=== PATIENT | male | born 1960 ===

== ENCOUNTER 2018-01-21 07:30 | Day surgery (SDC) | payer MEDICARE ==
[2018-01-19 11:25] VITALS: BMI 25.0
[~2018-01-21 07:30] MED LIST: LACTATED RINGERS 1,000 ML IV SCH; LIDOCAINE 1% 20 ML VIAL (10MG/ML) FOR IV START INTRADERMA PRN
[2018-01-21] MEDS ORDERED: LACTATED RINGERS 1,000 ML IV ONE (07:45)
[2018-01-21 07:47] VITALS: RESP 18; TEMP 98
[2018-01-21] MEDS ORDERED: LIDOCAINE 1% 20 ML VIAL (10MG/ML) FOR IV START INTRADERMA ONE (07:54)
[2018-01-21] MEDS ORDERED: PROPOFOL 10 MG/ML 20 ML VIAL IV ONE (08:27)
--- NOTE | 2018-01-21 08:34 | P.GSHP ---
History of Present Illness H&P Date: 01/21/18 Chief Complaint: Screening, history of polyps Patient here today for colonoscopy. Last colonoscopy was found have a moderate sized polyp. No bowel complaints. Past Medical History Past Medical History: Hypertension, Prostate Disorder Additional Past Medical History / Comment(s): hx colon polyps History of Any Multi-Drug Resistant Organisms: None Reported Additional Past Surgical History / Comment(s): colonscopy, growth to remove a growth on knee Past Anesthesia/Blood Transfusion Reactions: No Reported Reaction Smoking Status: Former smoker - Past Family History Mother Family Medical History: GI Bleed Sister(s) Family Medical History: Cancer Additional Family Medical History / Comment(s): multiple myeloma x 2 sisters Medications and Allergies Home Medications Medication Instructions Recorded Confirmed Type Ascorbic Acid [Vitamin C] 500 mg PO DAILY 01/19/18 01/19/18 History Aspirin [Adult Low Dose Aspirin EC] 81 mg PO DAILY 01/19/18 01/19/18 History L.acidoph,Paracasei, B.lactis 1 each PO DAILY 01/19/18 01/19/18 History [Probiotic] Lisinopril-Hctz 20-25 mg 1 tab PO DAILY 01/19/18 01/19/18 History [Zestoretic 20-25] Loratadine-Pseudoeph 10-240 mg 1 each PO DAILY 01/19/18 01/19/18 History [Claritin-D 24 Hr] Lysine [l-Lysine] 500 mg PO DAILY 01/19/18 01/19/18 History Tamsulosin [Flomax] 0.4 mg PO DAILY 01/19/18 01/19/18 History Allergies Allergy/AdvReac Type Severity Reaction Status Date / Time No Known Allergies Allergy Verified 01/19/18 11:13 Surgical - Exam Vital Signs Temp Pulse Resp BP Pulse Ox 98.0 F 78 18 157/88 98 01/21/18 07:46 01/21/18 07:46 01/21/18 07:46 01/21/18 07:46 01/21/18 07:46 Physical exam: General: Well-developed, well-nourished HEENT: Normocephalic, sclerae nonicteric Abdomen: Nontender, nondistended Extremities: No edema Neuro: Alert and oriented Assessment and Plan (1) Colon cancer screening Narrative/Plan: Will proceed with colonoscopy at this time Current Visit: Yes Status: Acute Code(s): Z12.11 - ENCOUNTER FOR SCREENING FOR MALIGNANT NEOPLASM OF COLON SNOMED Code(s): 149589683
--- NOTE | 2018-01-21 08:53 | P.PCN ---
Date of Procedure: 01/21/18 Procedure(s) Performed: PREOPERATIVE DIAGNOSIS: Colon cancer screening, history of polyps POSTOPERATIVE DIAGNOSIS: Ascending colon polyp PROCEDURE: Colonoscopy with snare polypectomy ANESTHESIA: MAC SURGEON: Don Mann M.D. SPECIMENS: Ascending colon polyp ENDOSCOPIC PROCEDURE: The patient was placed on the endoscopy table in the left decubitus position. The Olympus colonoscope was inserted into the anus and passed under direct visualization to the base of the cecum. The appendiceal orifice was visualized. From that point the scope was slowly withdrawn inspecting all surfaces carefully. There were no neoplastic inflammatory or polypoid lesions throughout the cecum. In the mid ascending colon a small polyp was identified and removed using the snare with cautery technique. The remainder of the ascending transverse descending sigmoid and rectum appeared normal. There was visible diverticulosis. Digital rectal examination was normal. The patient was taken to the recovery room in stable condition per anesthesia guidelines. RECOMMENDATIONS: Await biopsy results. Recommend follow-up colonoscopy 5 years.
[2018-01-21 09:15] VITALS: BP 106/75; PULSE 67
== END 2018-01-21 09:42 | disposition home or self-care (01) ==
LOC: ORWHC2ENDO 07:30
PROVIDERS: ATTEND Surgery
DX: Z12.11 Encounter for screening for malignant neoplasm of colon (principal); D12.2 Benign neoplasm of ascending colon; K57.30 Diverticulosis of large intestine without perforation or abscess without bleeding; Z87.19 Personal history of other diseases of the digestive system; I10 Essential (primary) hypertension; N42.9 Disorder of prostate, unspecified; N40.0 Benign prostatic hyperplasia without lower urinary tract symptoms; F79 Unspecified intellectual disabilities; Z79.82 Long term (current) use of aspirin; Z79.899 Other long term (current) drug therapy; Z87.891 Personal history of nicotine dependence
CPT/HCPCS: 88305; 45385; J2704

== ENCOUNTER → 2019-06-11 | Outpatient (CLI) | payer MEDICARE ==
--- NOTE | 2019-06-11 10:50 | US ---
EXAMINATION TYPE: US prostate transrectal DATE OF EXAM: 06/11/2019 COMPARISON: NONE CLINICAL HISTORY: R97.20 Elevated PSA. Elevated PSA, patient has mild learning disability This examination was performed using the transrectal probe. EXAM MEASUREMENTS: Gland Size: 4.2 x 2.2 x 4.6cm Volume: 22.0ml Predicted PSA: 2.64 Actual PSA (if available):Not available at time of exam Heterogeneous gland with 1.5 x 0.7 x 1.2cm hypoechoic vascular area seen at left base. IMPRESSION: Hypoechoic 1.5 cm nodule at the left lateral base of the prostate gland. Biopsy is recom mended in this patient with elevated PSA. Otherwise the prostate gland is heterogenous suggesting a c omponent of benign prostatic hyperplasia as well. Predicted PSA = volume x 0.12 ng/ml Calculated Volume = 0.5236 x L x W x H
== END | disposition home or self-care (01) ==
LOC: RADUSWWP 10:07
PROVIDERS: ATTEND Internal Medicine
DX: N40.2 Nodular prostate without lower urinary tract symptoms (principal)
CPT/HCPCS: 76872

== ENCOUNTER → 2020-03-22 | Outpatient (CLI) | payer MEDICARE ==
--- NOTE | 2020-03-23 07:48 | CT ---
EXAMINATION TYPE: CT abdomen pelvis w con DATE OF EXAM: 03/22/2020 COMPARISON: None. HISTORY: Staging for prostate CA CT DLP: 648.6 mGycm, Automated Exposure Control for Dose Reduction was Utilized. CONTRAST: CT scan of the abdomen and pelvis is performed with oral and with IV Contrast, patient injected with 100 mL of Isovue 300. FINDINGS: Exam suboptimal due to patient anxiety. Motion artifact degradation is present. Patient can not complete delayed imaging. LUNG BASES: Motion artifact. Lung bases grossly clear LIVER/GB: Distended margins to gallbladder. No surrounding inflammatory change. PANCREAS: No significant abnormality is seen. SPLEEN: No significant abnormality is seen. ADRENALS: No significant abnormality is seen. KIDNEYS: 2 adjacent low dense lesions posteriorly upper pole left kidney axial image 28 or single lob ulated lesion. Single round 1.2 cm low dense lesion anteriorly right kidney mid to lower pole level. Advise ultrasound to further evaluate, favor thin-walled cysts but not definitively characterized as this on current study BOWEL: Oral contrast reaches level of terminal ileum. No suspicious small or large bowel dilatation. Normal-appearing appendix from cecum in the right lower quadrant. PROSTATE/SEMINAL VESICLES: Enlarged prostate consistent with BPH bulging on bladder base. LYMPH NODES: No greater than 1cm abdominal or pelvic lymph nodes are appreciated. OSSEOUS STRUCTURES: Osseous structures are demineralized. Spinous straightened. Moderate disc space n arrowing with vacuum disc phenomenon L4-L5 level. Moderate joint space loss both hips. Facet arthropa thy lower lumbar levels. Occasional nonspecific tiny sclerotic focus left proximal humerus and right acetabulum coronal image 62 for reference favors benign bone islands, osseous metastatic disease felt much less likely. OTHER: No significant additional abnormality is seen. IMPRESSION: No suspicious mass or adenopathy to suggest metastatic disease
== END | disposition home or self-care (01) ==
LOC: RADCTMAIN 16:53
PROVIDERS: ATTEND Urology
DX: C61 Malignant neoplasm of prostate (principal)
CPT/HCPCS: 74177; Q9967

== ENCOUNTER → 2020-04-03 | Outpatient (CLI) | payer MEDICARE ==
--- NOTE | 2020-04-03 15:56 | NM ---
EXAMINATION TYPE: NM bone scan whole body DATE OF EXAM: 04/03/2020 COMPARISON: CT 03/22/2020 HISTORY: Prostate carcinoma, C 59 Delayed whole-body scanning was performed following the injection of 21.3 mCi Tc 99m MDP. Images acq uired 3 hours post injection. FINDINGS: Soft tissue uptake is normal. There is uptake within the feet, knees, hands and wrists, shoulders whi ch is likely degenerative. There is a mild spinal curvature. Posterior ribs on the left at approximat sukhjinder the 7 and 10th ribs show some uptake greater at the approximate seventh rib. Some uptake is also present in the lumbar spine, lower thoracic spine which is likely due to degenerative disc disease. IMPRESSION: Indeterminate rib uptake, metastatic disease is not excluded.
== END | disposition home or self-care (01) ==
LOC: RADNMMAIN 09:48
PROVIDERS: ATTEND Urology
DX: R94.8 Abnormal results of function studies of other organs and systems (principal); C61 Malignant neoplasm of prostate
CPT/HCPCS: 78306; A9503

== ENCOUNTER → 2020-04-05 | Outpatient (CLI) | payer MEDICARE ==
--- NOTE | 2020-04-05 16:09 | XR ---
Left RIBS HISTORY: C 59, abnormal bone scan, prostate cancer Correlation to bone scan 04/03/2020 4 views of left ribs Ribs show no fracture. Bone mineralization is remarkable for some questionable permeative pattern at the seventh rib on the left, cortical thickening present at the 10th rib may correspond to bone scan finding. IMPRESSION: Question permeative pattern posterior left seventh rib, CT scan of the chest could be per formed for better evaluation
== END | disposition home or self-care (01) ==
LOC: RADXRMAIN 14:40
PROVIDERS: ATTEND Urology
DX: C61 Malignant neoplasm of prostate (principal)

== ENCOUNTER → 2020-04-18 | Outpatient (CLI) | payer MEDICARE ==
--- NOTE | 2020-04-19 00:54 | CT ---
EXAMINATION TYPE: CT chest w con DATE OF EXAM: 04/18/2020 COMPARISON: None HISTORY: Abnormal exams with history of prostate cancer. CT DLP: 521.5 mGycm Automated exposure control for dose reduction was used. CONTRAST: Performed with IV Contrast, patient injected with 100 mL of Isovue 300. Images were obtained from the thoracic inlet to the diaphragm with IV contrast. There is mild ectasia of the aortic arch that measures up to 3.7 cm. There is no dissection. There is no mediastinal adenopathy. There are no hilar masses. Pulmonary arteries appear intact. Heart size i s normal. There is no pericardial effusion. The lungs are clear of infiltrate. There is no evidence of a pulmonary mass. There is no pleural effu telma. There is some mild left posterior rib deformity consistent with old fractures. I see no acute fractur e. I see no focal bone destruction. The shoulder joints appear intact. Thoracic vertebra appear intac t. There is no compression fracture. There is minor spurring in the thoracic spine. Sternum appears n ormal. There is elongated large gallbladder noted. Liver appears intact. Specifically there is no walter dence of a destructive lesion of the left seventh rib. IMPRESSION: Mild ectasia of the aortic arch. No dissection. No suspicious bony abnormality. I do not see evidence for metastatic disease. No acute lung disease.
== END | disposition home or self-care (01) ==
LOC: RADCTMAIN 16:53
PROVIDERS: ATTEND Urology
DX: I77.819 Aortic ectasia, unspecified site (principal); C61 Malignant neoplasm of prostate; R93.7 Abnormal findings on diagnostic imaging of other parts of musculoskeletal system
CPT/HCPCS: 71260; Q9967

== ENCOUNTER → 2020-05-26 | Outpatient (CLI) | payer MEDICARE ==
--- NOTE | 2020-05-26 14:48 | XR ---
EXAMINATION TYPE: XR chest 2V DATE OF EXAM: 05/26/2020 COMPARISON: NONE HISTORY: Shortness of breath TECHNIQUE: Frontal and lateral views of the chest are obtained. FINDINGS: Scattered senescent parenchymal changes noted. Hyperinflation compatible with COPD. No evidence for infiltrate. No evidence for atelectasis. Heart size is stable. LI with Mediastinal structures are stable and grossly unremarkable. No evidence for hilar prominence. Degenerative changes dorsal spine. IMPRESSION: 1. No evidence for acute pulmonary disease.
[2020-05-26 15:02] LABS: Anisocytosis Slight; Basophils % (A) 1 %; Eosinophils # (A) 0.2 k/uL (0-0.7); Eosinophils % (A) 3 %; HCT 40.1 % (39.0-53.0); HGB 13.3 gm/dL (13.0-17.5); Lymphocytes # (A) 1.2 k/uL (1.0-4.8); Lymphocytes % (A) 21 %; MCH 32.2 pg (25.0-35.0); MCHC 33.2 g/dL (31.0-37.0); MCV 96.9 fL (80.0-100.0); Mean Platelet Volume 8.9; Monocytes # (A) 0.4 k/uL (0-1.0); Monocytes % (A) 6 %; Neutrophils % (A) 68 %; Platelet Count 133 k/uL (150-450); RBC 4.14 m/uL (4.30-5.90); RDW 17.4 % (11.5-15.5); WBC 5.9 k/uL (3.8-10.6)
[2020-05-26 15:11] LABS: Calcium 9.3 mg/dL (8.4-10.2); Potassium 4.1 mmol/L (3.5-5.1)
== END | disposition home or self-care (01) ==
LOC: LABPAT 14:04
PROVIDERS: ATTEND Urology
DX: Z01.818 Encounter for other preprocedural examination (principal); C61 Malignant neoplasm of prostate
CPT/HCPCS: 36415; 71046; 80048; 85025

== ENCOUNTER 2020-06-02 05:49 | Observation (INO) | payer MEDICARE ==
[2020-05-26 17:01] VITALS: BMI 27.5
--- NOTE | 2020-06-01 15:16 | P.HPIHPCON ---
History of Present Illness H&P Date: 06/01/20 Chief Complaint: Prostate cancer Mr. Hodges is a 60-year-old male with history of [place] 8 prostate cancer. Option of robotic prostatectomy versus external beam radiation therapy was discussed with him and family. Of note he has hx of learning disability and family felt that he wasn't be able to tolerate EBRT sessions. Discussed with him surgery in details. Discussed the risk of bleeding, infection, injury to nearby organs, urinary incontinence, erectile dysfunction. Also discussed risk from anesthesia with him. We did discussed with him we can attempt to place a suprapubic tube instead of the Sinegr catheter, but there is still potential of placing a Singer, and if patient accidentally removes the Singer this can result in breakdown of the anastomosis, can result in permanent incontinence, potential takeback to the OR. I also discussed the limited biopsy was perfromed on given his poor tolerance of biopsy. Given this his cancer can be more aggressive than what the biopsy showed. Also discussed potential of cancer recurrence potential of needing radiation in the future. They understood all risk and agreed to proceed with a robotic-assisted left scopic prostatectomy, pelvic lymph node dissection, possible suprapubic tube placement Consent for Procedure: I have explained the operation/procedure to the patient, including the risks, benefits, side effects, alternative therapies (including not receiving the proposed treatment or service), the likelihood of the patient achieving his/her goals, and potential recuperation problems for the procedure/sedation/analgesia, as well as any blood products, if indicated. I also explained to the patient the risks, benefits and side effects of the alternatives, as well as the risks related to not receiving the proposed procedure, care, treatment, or services. Past Medical History Past Medical History: Cancer, GERD/Reflux, Hypertension, Prostate Disorder Additional Past Medical History / Comment(s): hx colon polyps. Prostate cancer. Developmental delayed History of Any Multi-Drug Resistant Organisms: None Reported Past Surgical History: Orthopedic Surgery Additional Past Surgical History / Comment(s): colonscopy, growth removed on knee Past Anesthesia/Blood Transfusion Reactions: No Reported Reaction Smoking Status: Former smoker - Past Family History Mother Family Medical History: GI Bleed, Renal Disease Sister(s) Family Medical History: Cancer Additional Family Medical History / Comment(s): multiple myeloma x2 sisters Medications and Allergies Home Medications Medication Instructions Recorded Confirmed Type Aspirin [Adult Low Dose Aspirin EC] 81 mg PO DAILY 01/19/18 05/26/20 History L.acidoph,Paracasei, B.lactis 1 each PO DAILY 01/19/18 05/26/20 History [Probiotic] Lisinopril-Hctz 20-25 mg 1 tab PO DAILY 01/19/18 05/26/20 History [Zestoretic 20-25] Lysine [l-Lysine] 500 mg PO DAILY 01/19/18 05/26/20 History Cholecalciferol [Vitamin D3 (25 50 mcg PO DAILY 05/26/20 05/26/20 History Mcg = 1000 Iu)] Fluticasone Nasal [place] [Flonase 2 spr EA NOSTRIL DAILY 05/26/20 05/26/20 History Nasal [place]] Loratadine [Claritin] 10 mg PO DAILY 05/26/20 05/26/20 History Omeprazole [PriLOSEC] 20 mg PO AC-BRKFST 05/26/20 05/26/20 History Tamsulosin HCl [Flomax] 0.4 mg PO DAILY 05/26/20 05/26/20 History Allergies Allergy/AdvReac Type Severity Reaction Status Date / Time No Known Allergies Allergy Verified 05/26/20 16:18 Surgical - Exam - General well developed, well nourished, no distress, no pain - Respiratory normal expansion, normal respiratory effort - Abdomen Abdomen: soft, non tender Assessment and Plan Assessment: 60 yo hx of [place] 8 Prostate cancer -robotic-assisted left scopic prostatectomy, pelvic lymph node dissection, possible suprapubic tube placement
[~2020-06-02 05:49] MED LIST changes: +DEXAMETHASONE SOD PHOSPHATE 4 MG/ML 1 ML VIAL IV ONE; -LACTATED RINGERS 1,000 ML IV SCH; -LIDOCAINE 1% 20 ML VIAL (10MG/ML) FOR IV START INTRADERMA PRN; +ONDANSETRON 4 MG/2 ML VIAL IVP ONE
[2020-06-02] MEDS ORDERED: HEPARIN SODIUM,PORCINE 5,000 UNIT/ML 1 ML VIAL SQ PRN (06:00)
[2020-06-02] MEDS ORDERED: LIDOCAINE 1% (10MG/ML) FOR IV START INTRADERMA ONE (06:30)
[2020-06-02] MEDS: LACTATED RINGERS 1,000 ML IV SCH (06:30)
[2020-06-02] MEDS: MIDAZOLAM 2 MG/2 ML VIAL IV ONE ×2 (06:45→07:00)
[2020-06-02] MEDS ORDERED: fentaNYL (PF) 50 MCG/ML 2 ML AMP ONE (07:37)
[2020-06-02] MEDS ORDERED: HYDROmorphone (PF) 1 MG/ML ONE (07:37)
[2020-06-02] MEDS ORDERED: MIDAZOLAM 2 MG/2 ML VIAL ONE (07:37)
[2020-06-02] MEDS ORDERED: ROCURONIUM 10 MG/ML (5 ML VIAL) IV ONE (07:37)
[2020-06-02] MEDS ORDERED: GLYCOPYRROLATE 0.2 MG/ML 2 ML VIAL ONE (07:37)
[2020-06-02] MEDS ORDERED: LIDOCAINE 1% INJ 10MG/ML (20 ML MDV) ONE (07:37)
[2020-06-02] MEDS ORDERED: SUCCINYLCHOLINE CHLORIDE 100 MG/5 ML SYR IV ONE (07:37)
[2020-06-02] MEDS ORDERED: NEOSTIGMINE 1 MG/ML 10 ML VIAL ONE (07:37)
[2020-06-02] MEDS ORDERED: PROPOFOL 10 MG/ML 20 ML VIAL IV ONE (07:37)
[2020-06-02] MEDS ORDERED: HYDROcodone/APAP 5-325MG 1 EACH TAB PO PRN (08:02)
[2020-06-02] MEDS ORDERED: BUPIVACAIN-EPI 0.5%-1:200,000 30 ML VIAL SQ ONE ×3 (08:31)
[2020-06-02] MEDS ORDERED: LACTATED RINGERS 1,000 ML IV ONE ×2 (09:41)
--- NOTE | 2020-06-02 12:33 | P.OP ---
Date of Procedure: 06/02/20 Preoperative Diagnosis: Prostate Cancer Postoperative Diagnosis: same Procedure(s) Performed: Robotic Assisted Prostatectomy, Bilateral Pelvic lymph node dissection Implants: none Anesthesia: DARINA Surgeon: Ernst Hernandez Estimated Blood Loss (ml): 200 Pathology: other (Prostate, bilateral seminal vesicle, bilateral pelvic lymph nodes, right apical margin) Condition: stable Disposition: PACU Indications for Procedure: Mr. Hodges is a 60-year-old male with history of [place] 8 prostate cancer. Option of robotic prostatectomy versus external beam radiation therapy was discussed with him and family. Of note he has hx of learning disability and edward dominick felt that he wasn't be able to tolerate EBRT sessions. Discussed with him surgery in details. Discussed the risk of bleeding, infection, injury to nearby organs, urinary incontinence, erectile dysfunction. Also discussed risk from anesthesia with him. We did discussed with him we can attempt to place a suprapubic tube instead of the Hammond catheter, but there is still potential of placing a Hammond, and if patient accidentally removes the Hammond this can result in breakdown of the anastomosis, can result in permanent incontinence, potential takeback to the OR. I also discussed the limited biopsy was perfromed on given his poor tolerance of biopsy. Given this his cancer can be more aggressive than what the biopsy showed. Also discussed potential of cancer recurrence potential of needing radiation in the future. They understood all risk and agreed to proceed with a robotic-assisted left scopic prostatectomy, pelvic lymph node dissection, possible suprapubic tube placemen Operative Findings: Bilateral seminal vesicles were plastered to the denovillers, no surgical plane posteriorly along the bilateral base of the prostate Description of Procedure: After preoperative antibiotics were started, the patient was taken to the operating room. Anesthesia was induced and the patient was placed in a supine position, with adequate padding of the pressure points, shoulders, back, legs and arms. He was then prepped and draped in the standard fashion. A critical pause was performed using two patient identifiers. A 16F hammond catheter was placed to gravity drainage. A pneumo-peritoneum was created with placement of a Veress needle to 20 mm Hg without complication, and a 8 Fr trocar was placed above the umbillicus. Under direct vision a 8mm robotic ports was placed lateral to each rectus slightly below the camera port. The left iliac fossa 8mm port was placed. The right pet care assistant right iliac fossa 12mm port and right paramedian 5mm portwere placed. After the patient was placed in the trendelenberg position, the robot was then docked to the 8mm robotic ports and then each robotic arm and tower was checked in relation to the patient's legs and hands to avoid inadvertent compression. The peritoneal cavity was inspected. An inverted U-shaped incision began laterally to the left medial umbilical ligament and extended high across the midline to the right umbilical ligament. The limbs of the "U" extended to the level of the vasa on both sides. We next developed the preperitoneal space and the space of Retzius. Cautery was used to dissected the bladder away from the prostate. After the anterior bladder neck was incised and the bladder entered the the posterior bladder neck was exposed and the ureteral orifces identified. The posterior bladder neck was then incised and dissected away from the prostate. The vas and the seminal vesicles were now exposed. The bilateral seminal vesicle were plastered to the denoviller's fascia,. Posteriorly the prostate was fixed to the rectum, no surgical plane identified. . Initially the pedicles were released laterally and after identifying the plane the dissection was carried more medially, to dissect the prostate away from the rectum. Of note after freeing up the prostate base, from the rectum surgical plane could be identified along the apex of the prostate. Each lateral pedicle was controlled with clips and cautery for hemostasis. No nerve preservation was performed bilaterally The puboprostatic ligament was incised where it inserted into the apex of the prostate and a plane between urethra and dorsal venous complex developed to expose the anterior urethral surface. The anterior wall of the urethra was transected with the cut setting a few millimeters distal to the apex of the prostate. The dorsal vein was ligated using 3-0 V lock bilateral obturator and external iliac lymph node packets were carefully dissected after careful visualization of the hypogastric artery and obturator nerve. There was careful attention paid to hemostasis with judicious use of cautery. Patient had limited lymphatic tissues bilaterally The urethrovesical anastomosis was performed . the posterior denovillers was reapproximated using 3-0 V lock. A 9 and 6 inch 3-0 V-Lock suture was used to anastomose the urethra and bladder, starting at the 6:00 posterior position. Mucosa was secured in every stitch, to ensure a mucosa to mucosa anastomosis. The stitch was regularly cinched and the anastomosis tightened. Care was taken to not violate the ureteral orifices. The Hammond catheter was advanced, the bladder filled, and the anastomosis was tested, as described above. Anastomsis was watertight at 200 mL The periumbilical fascia was closed with 1-0-PDS suture in running fashion. All ports were closed with a subcuticular 4-0 monocryl and Dermabond. Sponge, instrument, and needle counts were correct at the end of the case x2. All spec imens including prostate and lymph nodes were sent to pathology for diagnosis and will be available in a week. The patient tolerated the surgery well and without complication. He awoke without difficulty and was taken to the recovery room in stable condition
[2020-06-02] MEDS: KETOROLAC 15 MG/ML 1 ML VIAL IVP SCH ×3 (14:40→23:24)
[2020-06-02] MEDS: DEXTROSE 5%-0.45% NACL 1,000 ML IV SCH ×3 (14:40→23:25)
[2020-06-02] MEDS: LORATADINE 10 MG TAB PO SCH (14:40)
[2020-06-02] MEDS: FLUTICASONE 50MCG/SPRAY NASAL 16GM EA NOSTRIL SCH (16:58)
[2020-06-02] MEDS: HEPARIN SODIUM,PORCINE 5,000 UNIT/ML 1 ML VIAL SQ SCH (23:18)
[2020-06-03] MEDS: KETOROLAC 15 MG/ML 1 ML VIAL IVP SCH (05:36)
[2020-06-03] MEDS: LACTATED RINGERS 1,000 ML IV SCH (05:37)
[2020-06-03] MEDS ORDERED: PANTOPRAZOLE 40 MG TABLET PO SCH (07:30)
[2020-06-03 07:50] VITALS: BP 147/82; PULSE 78; RESP 18; TEMP 100.3
[2020-06-03] MEDS: LORATADINE 10 MG TAB PO SCH (07:50)
[2020-06-03] MEDS: HEPARIN SODIUM,PORCINE 5,000 UNIT/ML 1 ML VIAL SQ SCH (07:54)
--- NOTE | 2020-06-03 09:25 | P.DS ---
Providers Date of admission: 06/03/20 08:09 Attending physician: Ernst Hernandez MD Primary care physician: Jerrica Mcmanus [facility] Course: The patient is 60. He underwent a robotic-assisted laparoscopic prostatectomy 06/02/2020 without difficulty. Postoperatively did well. His vital signs are stable. His urine output is good. He is feeling well. The pain is minimal. His abdomen is soft. The wound looked good. The urine is clear. The patient wishes to be discharged home which is appropriate. He will take Tylenol or Motrin for pain. He resume his home medications. He'll follow-up with Dr. Hernandez on June 12. He'll go home with a catheter leg and overnight bag. The pathology report is pending. His condition is good. Patient Condition at Discharge: Good Plan - Discharge Summary Discharge Rx Participant: No New Discharge Prescriptions: No Action Lysine [l-Lysine] 500 mg PO DAILY Lisinopril-Hctz 20-25 mg [Zestoretic 20-25] 1 tab PO DAILY L.acidoph,Paracasei, B.lactis [Probiotic] 1 each PO DAILY Aspirin [Adult Low Dose Aspirin EC] 81 mg PO DAILY Cholecalciferol [Vitamin D3 (25 Mcg = 1000 Iu)] 50 mcg PO DAILY Fluticasone Nasal [place] [Flonase Nasal [place]] 2 spr EA NOSTRIL DAILY Loratadine [Claritin] 10 mg PO DAILY Omeprazole [PriLOSEC] 20 mg PO AC-BRKFST Tamsulosin HCl [Flomax] 0.4 mg PO DAILY Discharge Medication List Aspirin [Adult Low Dose Aspirin EC] 81 mg PO DAILY 01/19/18 [History] L.acidoph,Paracasei, B.lactis [Probiotic] 1 each PO DAILY 01/19/18 [History] Lisinopril-Hctz 20-25 mg [Zestoretic 20-25] 1 tab PO DAILY 01/19/18 [History] Lysine [l-Lysine] 500 mg PO DAILY 01/19/18 [History] Cholecalciferol [Vitamin D3 (25 Mcg = 1000 Iu)] 50 mcg PO DAILY 05/26/20 [History] Fluticasone Nasal [place] [Flonase Nasal [place]] 2 spr EA NOSTRIL DAILY 05/26/20 [History] Loratadine [Claritin] 10 mg PO DAILY 05/26/20 [History] Omeprazole [PriLOSEC] 20 mg PO AC-BRKFST 05/26/20 [History] Tamsulosin HCl [Flomax] 0.4 mg PO DAILY 05/26/20 [History] Follow up Appointment(s)/Referral(s): [facility], [NON-STAFF] - ([facility] will call you to set up first visit. ) Ernst Hernandez MD [STAFF PHYSICIAN] - 06/12/20 Activity/Diet/Wound Care/Special Instructions: Home with Singer leg and overnight bag. Please instruct Discharge Disposition: HOME SELF-CARE
[2020-06-03] MEDS: FLUTICASONE 50MCG/SPRAY NASAL 16GM EA NOSTRIL SCH (10:06)
== END 2020-06-03 11:40 | disposition home health service (06) ==
LOC: OR 05:49 → EEVIPCON 05:49 → 4SSUR 12:23 → OR 06-03 08:09
PROVIDERS: ADMIT Urology; ATTEND Urology
DX: C61 Malignant neoplasm of prostate (principal); I10 Essential (primary) hypertension; K21.9 Gastro-esophageal reflux disease without esophagitis; R62.50 Unspecified lack of expected normal physiological development in childhood; Z86.010 Personal history of colon polyps; Z79.82 Long term (current) use of aspirin; Z79.899 Other long term (current) drug therapy; Z79.83 Long term (current) use of bisphosphonates; Z80.7 Family history of other malignant neoplasms of lymphoid, hematopoietic and related tissues; Z84.1 Family history of disorders of kidney and ureter; Z87.891 Personal history of nicotine dependence
CPT/HCPCS: 55866; 38589; 93005; 88305; 88307; 88309; G0378; J2250; J1644 ×2; J1100; J2710; J0690; J2405; J2001; J3010; J1170; J1885 ×2; J0330; J2704; 86850; 86900; 86901

== ENCOUNTER → 2023-07-03 | Outpatient (CLI) | payer MEDICARE ==
--- NOTE | 2023-07-06 23:01 | PE ---
EXAMINATION TYPE: PET CT fusion skull to thigh DATE OF EXAM: 07/03/2023 COMPARISON: 03/22/2020. No recent pertinent CT Prior PET/CT: None HISTORY: Prostate cancer TECHNIQUE: Following the intravenous administration of 5.58 mCi of gallium 68 PSMA, whole body image s are performed from the skull base to the midthigh. Images are reviewed on the computer in the rosanne nal, axial, and sagittal planes. Reconstructed rotating images are created on independent workstatio n and reviewed on the computer. A localization and attenuation correction CT is performed in conjun ction with the PET scan. DLP: 829.44 mGycm SCAN: Initial FINDINGS: NECK: There is normal uptake within the salivary glands. THORAX: No abnormal uptake ABDOMEN: No abnormal uptake PELVIS: No abnormal uptake. Prostate is not clearly identified. Difficult separate urinary bladder wh ich may have a small cystocele. Correlate for prior prostatectomy. OSSEOUS STRUCTURES: No abnormal uptake LOCALIZATION CT: There is a small nodule along the major fissure on the right. This was not identifie d previously. This has normal uptake however measuring 0.94 SUV. Monitoring is recommended. COMPARISON: None IMPRESSION: 1. No suspicious changes to suggest metastatic prostate cancer. 2. Patient's primary prostate cancer not identified. Correlate with the patient's surgical history. 3. New nodule along the major fissure on the right not present comparison 2020 CT chest. No abnormal uptake PET scan, monitoring with CT of chest recommended.
== END | disposition home or self-care (01) ==
LOC: RADPETMAIN 14:01
PROVIDERS: ATTEND Urology
DX: C61 Malignant neoplasm of prostate (principal)
CPT/HCPCS: 78815; A9596

== ENCOUNTER → 2024-02-23 | Outpatient (CLI) | payer MEDICARE ==
--- NOTE | 2024-02-23 13:39 | CT ---
EXAMINATION TYPE: CT chest w con CT DLP: 644 mGycm, Automated exposure control for dose reduction was used. DATE OF EXAM: 02/23/2024 12:59 PM COMPARISON: PEt CT 07/03/2023, CT chest 04/18/2020 CLINICAL INDICATION:Male, 63 years old with history of C61 MALIGNANT NEOPLASM OF PROSTATE R91.1 SOLIT ALCON; PHH, f/u nodules TECHNIQUE: Multiple axial images were obtained through the chest following the administration of 100 cc of Isovue 300. . Coronal and sagittal reformats reviewed. FINDINGS: LUNGS/ PLEURA: No pleural effusion, pneumothorax, or focal consolidation. Decreased size of nodule a long the right major fissure measuring 5.4 mm (series 4, image 35), previously 7.1 mm on PET/CT. AIRWAY: Patent and unremarkable.. HEART: The heart is mildly increased in size..No pericardial effusion. MEDIASTINUM: No gross evidence of adenopathy. VASCULATURE: Conventional three-vessel aortic arch. 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 MUSCULOSKELETAL: No acute osseous abnormalities. No aggressive osseous lesion. Mild multilevel degene rative disc disease. Remote left posterior 10th rib fracture. SOFT TISSUES/LYMPH NODES: Mild bilateral gynecomastia. LOWER NECK: No significant findings. UPPER ABDOMEN: Similar elongated prominent appearance of the gallbladder. Subcentimeter hypodense foc us within the inferior right hepatic lobe which is too small to characterize but likely represents a cyst. Tiny hiatal hernia. Redemonstration of left renal cysts measuring up to 3.6 cm. IMPRESSION: 1. Marginal decrease in size of a 5.4 mm nodule along the right major fissure. Possible intrafissural lymph node. Consider follow-up CT chest in one year. 2. 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 [facility], , 02/23/2024 1:37 PM
== END | disposition home or self-care (01) ==
LOC: RADCTMAIN 12:25
PROVIDERS: ATTEND Urology
DX: C61 Malignant neoplasm of prostate (principal); R91.1 Solitary pulmonary nodule
CPT/HCPCS: 71260; Q9967